=== PATIENT | female | born 1965 | race Caucasian/White ===

== ENCOUNTER 2019-10-26 18:01 | Emergency (ER) | payer SELFPAY ==
[~2019-10-26] VITALS: Ht 157.5 cm; Wt 52.2 kg
[2019-10-26 18:13] VITALS: BP 135/86
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
[2019-10-26] MEDS ORDERED: DOXY100C2 PO (19:10)
== END 2019-10-26 19:15 | disposition home or self-care (01) ==
LOC: ER 18:01
DX: J18.9 Pneumonia, unspecified organism (principal); F41.9 Anxiety disorder, unspecified; F32.9 Major depressive disorder, single episode, unspecified; Z98.890 Other specified postprocedural states
CPT/HCPCS: 99283